=== PATIENT | male | born 1995 | race Hispanic/Latino ===

== ENCOUNTER 2025-03-27 09:28 | Emergency (ER) | payer SELFPAY ==
[~2025-03-27] VITALS: Ht 162.6 cm; Wt 93.0 kg
[2025-03-27 09:54] LABS: RAPID GROUP A STREP negative (NEGATIVE)
[2025-03-27 10:04] LABS: COVID19 (SARS ANTIGEN RAPID) PRESUMPTIVE NEGATIVE (NEGATIVE); INFLUENZA TYPE A Negative For Type A (NEGATIVE); INFLUENZA TYPE B Negative For Type B (NEGATIVE)
[2025-03-27] MEDS ORDERED: PRED20TA3 PO (11:36)
[2025-03-27] MEDS ORDERED: AZIT250T9 PO (11:36)
--- NOTE | 2025-03-27 11:36 | ERN ---
ED Note History of Present Illness Stated Complaint: CHEST CONGESTION Chief Complaint: Congestion Time Seen by MD: 09:31 Dictation: 29-year-old male with cough cold congestion over the past month chills, no fever. no shortness of breath however symptoms have not resolved. Patient has no past medical history Allergies: Coded Allergies: Penicillins (Unverified Allergy, Unknown, 03/27/25) Past Medical History Past Medical History: Asthma Surgical History: Other Surgical History Other: RT GREAT TOE AMPUTATION Review of System Dictation Constitutional: Per HPI Eyes: Negative for injury, pain,redness, and discharge ENT: Negative for injury,pain or swelling Cardiovascular: Negative for chest pain, palpitations, and edema Respiratory: Per HPI Abdomen/GI: Negative for abdominal pain, nausea, vomiting, diarrhea, and constipation Back: Negative for injury and pain : Negative for injury, bleeding and discharge MS/Extremity: Negative for injury and deformity Skin: Negative for rash, and discoloration Neuro: Negative for headache, weakness, numbness, tingling, and seizure Psych: Negative for suicide ideation, homicidal ideation, and hallucinations Initial Vital Sign VS Vital Signs Date Time Temp Pulse Resp B/P (MAP) Pulse Ox O2 Delivery O2 Flow Rate FiO2 03/27/25 09:29 98.1 75 16 118/ 97 Room Air Physical Exam Dictation General: awake, alert, NAD Head/Face: Normocephalic, atraumatic Eyes: PERRL, EOMI, vision at baseline ENT: oral cavity clear, TMs clear, no signs of infection Neck: Trachea midline, supple, no nuchal rigidity Cardiovascular: RRR, normal S1/S2, No MRGs, no JVD Respiratory: CTAB, no respiratory distress, No rales or wheezes Abdomen: Soft, non-tender, non-distended, normal bowel sounds, no guarding or rebound. Skin: Warm, dry, normal turgor, no rash MS/Extremity: Pulses equal, no cyanosis, neurovascular intact, FROM Neuro: COAx4, GCS 15, strength 5/5, CN 2-12 intact, normal cerebellar exam, normal gait, Psych: Normal behavior, mood, and affect normal Results (Laboratory/Radiology) Laboratory/Radiology Laboratory Tests Test 03/27/25 09:35 Influenza Type A Antigen Negative For Type A Influenza Type B Antigen Negative For Type B SARS-CoV-2 Antigen (Rapid) PRESUMPTIVE NEGATIVE Group A Streptococcus Rapid negative (NEGATIVE) ED Course ED Course Orders Procedure Category Date Status Time Covid19 (Sars Antigen LAB 03/27/25 Complete Rapid) 09:32 Influenza Type A & B, LAB 03/27/25 Complete Rapid 09:32 Rapid (Group A Strep) LAB 03/27/25 Complete 09:32 Chest 2vws RAD 03/27/25 Taken 09:50 Dexamethasone 4mg/Ml PHA 03/27/25 In Process 1ml Vial (Dexametha 12:00 Azithromycin PHA 03/27/25 Logged (Zithromax) 12:00 Current Medications Medications (Trade) Dose Ordered Sig/Mattie Route PRN Reason Start Time Stop Time Status Last Admin Dose Admin Azithromycin (Zithromax) 500 mg ONCE ONCE PO 03/27/25 12:00 03/27/25 12:01 UNV Dexamethasone Sodium Phosphate (dexaMETHasone 4MG/ML 1ML VIAL) 10 mg ONCE ONCE IM 03/27/25 12:00 03/27/25 12:01 Vital Signs Date Time Temp Pulse Resp B/P (MAP) Pulse Ox O2 Delivery O2 Flow Rate FiO2 03/27/25 09:29 98.1 75 16 118/ 97 Room Air Medical Decision Making MDM MDM: Differential diagnosis: Rationale: Tests considered and ordered secondary to shared decision making include: Previous outside records reviewed: Old ER visits. Risk of complication and/or morbidity or mortality of patient management: None Medications-Per medication reconciliation Need for hospitalization: Patient does not meet criteria for hospitalization. Need for emergency major/minor surgery: No There are no social concerns with this patient. Prescription drug management Prescriptions will include symptomatic care Patient's prior external medical records from other ER visits were reviewed by me as indicated. Prior testing and results from previous visits were reviewed. Prior tests were taken into account with medical decision making and resource utilization, independent historian/historians were used to obtain complete medical history. I independently interpreted the test that were performed, results were reviewed by me and considered findings on radiology if ordered. Medical management and examination interpretation discussions were had by me with other qualified healthcare professionals as indicated for the patient's care. 29-year-old male with chronic bronchitis stable exam x-ray and swabs negative vital signs stable oxygenating well placed on steroids and antibiotics cover for atypical bugs. DX & DISP Disposition: Discharge Departure Impression: Primary Impression: Chronic bronchitis Condition: Stable Scripts Prednisone (Prednisone) 20 Mg Tablet 20 MG PO DAILY for 5 Days, #5 TAB Prov: YADY ACEVEDO MD 03/27/25 Azithromycin (Azithromycin) 250 Mg Tablet 250 MG PO AD for cough for 5 Days, #6 TAB Prov: YADY ACEVEDO MD 03/27/25 Referrals: SELF,REFERRAL (PCP) YADY ACEVEDO MD Mar 27, 2025 11:36
[2025-03-27 11:40] VITALS: BP 121/72; PULSE 72; RESP 16; TEMP 98.1; O2SAT 97
[2025-03-27] MEDS: AZITHROMYCIN 250 MG TABLET PO ONE (11:50)
--- NOTE | 2025-03-27 11:55 | HMCIMG ---
EXAM: CR Chest, 2 View. CLINICAL HISTORY: CONGESTION COMPARISON: None provided. FINDINGS: LUNGS: The lungs show no infiltrate or other acute finding. PLEURAL SPACES: No evidence of pleural effusion or pneumothorax. MEDIASTINUM: Cardiac size and mediastinal contours within normal limits. BONES: No acute osseous abnormality. IMPRESSION: No acute cardiopulmonary pathology is evident. /[place]
== END 2025-03-27 11:54 | disposition home or self-care (01) ==
LOC: EDH 09:28
DX: J44.89 Other specified chronic obstructive pulmonary disease (principal); Z88.0 Allergy status to penicillin; Z20.822 Contact with and (suspected) exposure to COVID-19
CPT/HCPCS: 99284; 71046; 87426; 87880; 87804 ×2; 96372; J1100